=== PATIENT | male | born 1950 | race Caucasian/White ===

== ENCOUNTER 2017-09-19 14:40 | Emergency (ER) | payer MEDICARE, OTHER ==
[2017-09-19] MEDS ORDERED: NORMAL SALINE 1000 ML 1,000 ML IV ONE (15:51)
[2017-09-19] MEDS ORDERED: KETOROLAC TROMETHAMINE INJ/PF 30 MG/1 ML SDV IV PRN (15:51)
--- NOTE | 2017-09-19 15:52 | ER Document Report ---
ED Medical Screen (RME) - General Chief Complaint: Breathing Difficulty Stated Complaint: LEFT SIDE PAIN,CONFUSION Time Seen by Provider: 09/19/17 15:50 Notes: Patient comes in complaining of left-sided chest pain. Family states that over the last several days patient has been very lethargic and lying in bed all day. Patient will not eat or drink very much. Patient has been confused as well. Patient recently had a CT scan that showed pneumonia. However when patient was referred to pulmonology the drum carrier stated that he believes it may be cancer and not pneumonia. A repeat CT scan was scheduled for tomorrow. TRAVEL OUTSIDE OF THE [place] IN LAST 30 DAYS: No - Related Data Allergies/Adverse Reactions: No Known Allergies Allergy (Unverified 09/19/17 14:46) Past Medical History Pulmonary Medical History: Reports: Hx COPD Renal/ Medical History: Denies: Hx Peritoneal Dialysis Physical Exam - Vital signs Vitals: Temp Pulse Resp BP Pulse Ox 98.8 F 106 H 18 131/74 H 97 09/19/17 14:48 09/19/17 14:48 09/19/17 14:48 09/19/17 14:48 09/19/17 14:48 Course - Vital Signs Vital signs: Temp Pulse Resp BP Pulse Ox 98.8 F 106 H 18 131/74 H 97 09/19/17 14:48 09/19/17 14:48 09/19/17 14:48 09/19/17 14:48 09/19/17 14:48
[2017-09-19 16:26] LABS: APPEARANCE,URINE SLIGHTLY-CLOUDY; BILIRUBIN,URINE NEGATIVE (NEGATIVE); COLOR,URINE YELLOW; GLUCOSE, URINE 50 mg/dL (NEGATIVE); KETONES,URINE NEGATIVE (NEGATIVE); LEUKOCYTE ESTERASE,URINE NEGATIVE (NEGATIVE); NITRITE,URINE NEGATIVE (NEGATIVE); PROTEIN,URINE 100 mg/dL (NEGATIVE); URINE SPECIFIC GRAVITY 1.023; UROBILINOGEN,URINE NEGATIVE mg/dL (<2.0)
[2017-09-19 16:49] LABS: HEMATOCRIT 40.4 % (37.9-51.0); HEMOGLOBIN 13.5 g/dL (13.5-17.0); MEAN CORPUSCULAR HEMOGLOBIN 27.7 pg (27.0-33.4); MEAN CORPUSCULAR HGB CONC 33.4 g/dL (32.0-36.0); MEAN CORPUSCULAR VOLUME 83 fl (80-97); PLATELET COUNT 130 10^3/uL (150-450); RED BLOOD COUNT 4.87 10^6/uL (4.35-5.55); RED CELL DISTRIBUTION WIDTH 13.5 % (11.5-14.0); WHITE BLOOD COUNT 20.2 10^3/uL (4.0-10.5)
--- NOTE | 2017-09-19 16:49 | RADIOLOGY REPORT (SQ) ---
EXAM DESCRIPTION: CHEST PA/LAT COMPLETED DATE/TIME: 09/19/2017 4:37 pm REASON FOR STUDY: left sided pain COMPARISON: None. EXAM PARAMETERS: NUMBER OF VIEWS: two views TECHNIQUE: Digital Frontal and Lateral radiographic views of the chest acquired. RADIATION DOSE: NA LIMITATIONS: none FINDINGS: LUNGS AND PLEURA: There is evidence for obstructive lung disease with chronic appearing ch anges. Consolidative process is identified in the left lower hemithorax which may represent a left p leural effusion with associated atelectasis or infiltrate. I would recommend followup films to compl ete clearing to exclude an underlying process. Remaining lung saeed are free of active infiltrates. No pneumothorax is seen. MEDIASTINUM AND HILAR STRUCTURES: No masses or contour abnormalities. HEART AND VASCULAR STRUCTURES: Heart normal size. No evidence for failure. BONES: No acute findings. HARDWARE: None in the chest. OTHER: I cannot exclude a focal eventration or herniation of the left hemidiaphragm posteriorly. IMPRESSION: Obstructive lung disease with chronic appearing changes. Consolidative process in the l eft lower hemithorax as noted above. Clinical correlation and followup is recommended. Other findin gs as noted above TECHNICAL DOCUMENTATION: JOB ID: [id number] [employer]- All Rights Reserved
--- NOTE | 2017-09-19 16:49 | ER Document Report ---
ED Respiratory Problem - General Chief Complaint: Breathing Difficulty Stated Complaint: LEFT SIDE PAIN,CONFUSION Time Seen by Provider: 09/19/17 15:50 Notes: The patient is a 67-year-old male, past medical history COPD, current smoker, presents with increasing cough with streaks of blood over the past 3 months. Over the past 2 days, he began to have pain in the left side of his chest that is worse when he takes deep breath. He is also having some trouble and has not had much of an appetite during the same time period. Patient had an abnormal chest x-ray several months ago and is scheduled for an outpatient CT tomorrow with follow-up at his peanut butter maker, Dr. Gonsalez, in 3 days. Patient denies nausea, vomiting, abdominal pain, fevers, back pain, lightheadedness, leg swelling, blood thinner use or rash. TRAVEL OUTSIDE OF THE [place] IN LAST 30 DAYS: No - Related Data Allergies/Adverse Reactions: No Known Allergies Allergy (Unverified 09/19/17 14:46) Past Medical History - General Information source: Patient - Social History Smoking Status: Current Every Day Smoker Family History: Reviewed & Not Pertinent Patient has suicidal ideation: No Patient has homicidal ideation: No Pulmonary Medical History: Reports: Hx COPD Renal/ Medical History: Denies: Hx Peritoneal Dialysis Review of Systems - Review of Systems Notes: REVIEW OF SYSTEMS: CONSTITUTIONAL: -fevers, -chills EENT: -eye pain, -difficulty swallowing, -nasal congestion CARDIOVASCULAR: +chest pain, -syncope. RESPIRATORY: +cough, +SOB GASTROINTESTINAL: -abdominal pain, -nausea, -vomiting, -diarrhea GENITOURINARY: -dysuria, -hematuria MUSCULOSKELETAL: -back pain, -neck pain SKIN: -rash or skin lesions. HEMATOLOGIC: -easy bruising or bleeding. LYMPHATIC: -swollen, enlarged glands. NEUROLOGICAL: -altered mental status or loss of consciousness, -headache, - neurologic symptoms PSYCHIATRIC: -anxiety, -depression. ALL OTHER SYSTEMS REVIEWED AND NEGATIVE. Physical Exam - Vital signs Vitals: Temp Pulse Resp BP Pulse Ox 98.8 F 106 H 18 131/74 H 97 09/19/17 14:48 09/19/17 14:48 09/19/17 14:48 09/19/17 14:48 09/19/17 14:48 - Notes Notes: PHYSICAL EXAMINATION: GENERAL: Well-appearing, well-nourished and in no acute distress. HEAD: Atraumatic, normocephalic. EYES: Pupils equal round and reactive to light, extraocular movements intact, sclera anicteric, conjunctiva are normal. ENT: nares patent, oropharynx clear without exudates. Moist mucous membranes. NECK: Normal range of motion, supple without lymphadenopathy LUNGS: LLL crackles. No respiratory distress. HEART: Tachycardia, regular rhythm. ABDOMEN: Soft, nontender, normoactive bowel sounds. No guarding, no rebound. No masses appreciated. EXTREMITIES: Normal range of motion, no pitting or edema. No cyanosis. NEUROLOGICAL: Cranial nerves grossly intact. Normal speech, normal gait. Normal sensory and motor exams. PSYCH: Normal mood, normal affect. SKIN: Warm, Dry, normal turgor, no rashes or lesions noted. Course - Re-evaluation Re-evalutation: Patient is in no respiratory distress and chest pain has resolved. With the cough, history of heavy smoking and now streaks of blood in his sputum, concern for PE or lung mass. There is evidence of a pneumonia in his left lower lobe, but no PE. He also is tachycardic and has a leukocytosis. No recent hospitalizations, so we will begin CAP antibiotics. Troponin and EKG initially not ordered from triage, but troponin is elevated at 3.1 with hyperacute T waves in the lateral leads, but no evidence of a STEMI. No old EKGs to compare this to. Heparin and ASA started. Patient requires transfer to facility with interventional cardiology for further evaluation and treatment. 09/19/17 20:10 Called over to [employer]. Awaiting callback from [facility]. 09/19/17 20:[address] Edwin Grubbs ([facility]) and he has accepted patient. Recommends holding the Plavix due to recent blood in his sputum and continuing the heparin drip and aspirin. Awaiting a bed assignment. Pt remains chest pain free. - Vital Signs Vital signs: Temp Pulse Resp BP Pulse Ox 98.8 F 106 H 18 131/74 H 97 09/19/17 14:48 09/19/17 14:48 09/19/17 14:48 09/19/17 14:48 09/19/17 14:48 - Laboratory Result Diagrams: 09/19/17 16:15 09/19/17 16:15 Laboratory results interpreted by me: 09/19/17 09/19/17 09/19/17 15:55 16:15 16:15 WBC 20.2 H Plt Count 130 L Seg Neuts % (Manual) 81 H Lymphocytes % (Manual) 10 L Abs Neuts (Manual) 17.0 H PT APTT VBG pH Sodium 131.9 L Chloride 95 L BUN 25 H Direct Bilirubin 0.5 H AST 82 H ALT 121 H Urine Protein 100 H Urine Glucose (UA) 50 H Urine Blood LARGE H 09/19/17 09/19/17 16:15 20:15 WBC Plt Count Seg Neuts % (Manual) Lymphocytes % (Manual) Abs Neuts (Manual) PT 15.8 H APTT 40.7 H VBG pH 7.44 H Sodium Chloride BUN Direct Bilirubin AST ALT Urine Protein Urine Glucose (UA) Urine Blood - Diagnostic Test Radiology reviewed: Image reviewed, Reports reviewed Radiology results interpreted by me: CXR: Obstructive lung disease with chronic appearing changes. Consolidative process in the left lower hemithorax as noted above. Clinical correlation and followup is recommended. Other findings as noted above. CTA Chest: No PE. LLL pneumonia. Mild lymphadenopathy. - EKG Interpretation by Me EKG shows normal: Sinus rhythm Rate: Normal Rhythm: NSR When compared to previous EKG there are: Previous EKG unavailable Additional EKG results interpreted by me: No STEMI. Hyperacute T-waves. Critical Care Note - Critical Care Note Total time excluding time spent on procedures (mins): 35 Discharge - Discharge Clinical Impression: NSTEMI (non-ST elevated myocardial infarction) Pneumonia Qualifiers: Pneumonia type: due to unspecified organism Laterality: left Lung location: lower lobe of lung Qualified Code(s): J18.1 - Lobar pneumonia, unspecified organism Condition: Stable Disposition: [facility] Referrals: ROMEO GRAYSON DO [Primary Care Provider] - Follow up as needed EVON GONSALEZ MD [ACTIVE STAFF] - Follow up as needed
[2017-09-19 17:02] LABS: ALANINE AMINOTRANSFERASE 121 U/L (21-72); ALBUMIN 3.8 g/dL (3.5-5.0); ALKALINE PHOSPHATASE 115 U/L (38-126); ANION GAP 11 (5-19); ASPARTATE AMINO TRANSFERASE 82 U/L (17-59); BILIRUBIN,DIRECT 0.5 mg/dL (0.0-0.4); BLOOD UREA NITROGEN 25 mg/dL (7-20); CALCIUM 9.3 mg/dL (8.4-10.2); CARBON DIOXIDE 26 mmol/L (22-30); CHLORIDE 95 mmol/L (98-107); GLUCOSE 93 mg/dL (75-110); POTASSIUM 4.6 mmol/L (3.6-5.0); SODIUM 131.9 mmol/L (137-145); TOTAL PROTEIN 7.1 g/dL (6.3-8.2)
[2017-09-19 17:04] LABS: BAND NEUTROPHILS % (MANUAL) 3 % (3-5); BASOPHILS % (MANUAL) 0 % (0-2); EOSINOPHILS % (MANUAL) 1 % (0-6); LYMPHOCYTES % (MANUAL) 10 % (13-45); MONOCYTES % (MANUAL) 5 % (3-13); SEGMENTED NEUTROPHILS % (MAN) 81 % (42-78); TOTAL CELLS COUNTED 100
[2017-09-19 17:05] LABS: PLATELET COMMENT ADEQUATE; RBC MORPHOLOGY COMMENT NORMO-CYTIC/CHROMIC
--- NOTE | 2017-09-19 19:41 | RADIOLOGY REPORT (SQ) ---
EXAM DESCRIPTION: CTA CHEST COMPLETED DATE/TIME: 09/19/2017 7:25 pm REASON FOR STUDY: hemoptysis, tachycardia, possible lung mass COMPARISON: None. TECHNIQUE: CT scan of the chest performed using helical scanning technique with dynamic intravenous contrast injection. Images reviewed with lung, soft tissue and bone windows. Reconstructed coronal and sagittal MPR images reviewed. Additional 3 dimensional post-processing performed to develop Maximal Intensity Projection images (VT P). All images stored on PACS. All CT scanners at this facility use dose modulation, iterative reconstruction, and/or weight based d osing when appropriate to reduce radiation dose to as low as reasonably achievable (ALARA). [facility]: Dose Right [facility]: CareDose [facility]: Dose Right [facility]: Teradose 4D [facility]: Lab21 CONTRAST TYPE AND DOSE: contrast/concentration: Isovue 370.00 mg/ml; Total Contrast Delivered: 60.0 ml; Total Saline Delivered: 60.0 ml Contrast bolus adequate for pulmonary arteries and aorta. RENAL FUNCTION: BUN 25 creatinine 1.1 RADIATION DOSE: CT Rad equipment meets quality standard of care and radiation dose reduction techniq ues were employed. CTDIvol: 5.0 - 7.5 mGy. DLP: 227 mGy-cm. . LIMITATIONS: None. FINDINGS: LUNGS AND PLEURA: Centrilobular and paraseptal emphysema. Segmental airspace disease with air bronchograms in the left lower lobe. No large effusions. AORTA AND GREAT VESSELS: No aneurysm. Contrast bolus not optimized for the aorta. HEART: No pericardial effusion. No significant coronary artery calcifications. PULMONARY ARTERIES: No emboli visualized in the main pulmonary arteries or the segmental branches. HILAR AND MEDIASTINAL STRUCTURES: 1.5 cm pretracheal node. 1.5 x 2 cm right hilar node. HARDWARE: None in the chest. UPPER ABDOMEN: No significant findings. Limited exam. THYROID AND OTHER SOFT TISSUES: No masses. No adenopathy. BONES: No acute or significant finding. 3D MIPS: Confirm above findings. OTHER: No other significant finding. IMPRESSION: 1. No PE. 2. Left lower lobe pneumonia. 3. Mild lymphadenopathy. COMMENT: Quality ID # [id number]: Final reports with documentation of one or more dose reduction techniques (e.g., Automated exposure control, adjustment of the mA and/or kV according to patient size, use of iterative reconstruction technique) TECHNICAL DOCUMENTATION: JOB ID: [id number] [facility] [employer]- All Rights Reserved
[2017-09-19] MEDS ORDERED: HEPARIN SOD (PORCINE) 1,000 UNIT/ML 10 ML VIAL IV ONE (19:57)
[2017-09-19] MEDS ORDERED: CEFTRIAXONE 1 GM/D5W RTU 1 GM/50 ML RTUPB IV ONE (19:58)
[2017-09-19] MEDS ORDERED: AZITHROMYCIN INJ 500 MG VIAL IV ONE (19:58)
[2017-09-19] MEDS ORDERED: ASPIRIN 81 MG TABLET, CHEWABLE PO ONE (20:06)
[2017-09-19 20:16] LABS: INTERNATIONAL RATION (INR) 1.18; PROTHROMBIN TIME 15.8 SEC (11.4-15.4)
[2017-09-19 20:17] LABS: PARTIAL THROMBOPLASTIN TIME 40.7 SEC (23.5-35.8)
[2017-09-19 20:31] LABS: VENOUS BLOOD HCO3 26.3 mmol/L (20-32); VENOUS BLOOD PCO2 39.8 mmHg (35-63); VENOUS BLOOD PH 7.44 (7.30-7.42)
[2017-09-19] MEDS ORDERED: HEPARIN SODIUM,PORCINE/D5W 25,000 UNIT/250 ML RTUINJ IV PRN (21:14)
[2017-09-19] MEDS ORDERED: HEPARIN SOD (PORCINE) 1,000 UNIT/ML 10 ML VIAL IV PRN (22:57)
[2017-09-20] MEDS ORDERED: HEPARIN SOD (PORCINE) 1,000 UNIT/ML 10 ML VIAL IV PRN (00:15)
[2017-09-20 00:40] LABS: A TYPE INFLUENZA AG NEGATIVE (NEGATIVE); B INFLUENZA AG NEGATIVE (NEGATIVE)
--- NOTE | 2017-09-20 06:36 | EKG REPORT ---
SEVERITY:- ABNORMAL ECG - SINUS RHYTHM PROBABLE LEFT ATRIAL ABNORMALITY RBBB AND LPFB CONSIDER OLD ANTEROSEPTAL IA. : Confirmed by: Cr Taylor MD 20-Sep-2017 06:35:34
[2017-09-20] MEDS ORDERED: FENTANYL CITRATE INJ/PF 100 MCG/2 ML AMPUL IV ONE ×2 (07:58→13:04)
[2017-09-20] MEDS ORDERED: CEFTRIAXONE 1 GM/D5W RTU 1 GM/50 ML RTUPB IV SCH (10:00)
--- NOTE | 2017-09-20 14:25 | ER Document Report ---
Doctor's Note Notes: 09/20/17 14:24 Patient has been evaluated prior to transfer. Patient has had a little bit of hemoptysis but nothing that is massive hemoptysis. Troponin is coming down. Patient is stable at this time to be transferred.
[2017-09-20 14:29] VITALS: BP 115/76
== END 2017-09-20 14:59 | disposition short-term general hospital (02) ==
LOC: ER 14:40
DX: I21.4 Non-ST elevation (NSTEMI) myocardial infarction (principal); J18.1 Lobar pneumonia, unspecified organism; F17.200 Nicotine dependence, unspecified, uncomplicated; J44.9 Chronic obstructive pulmonary disease, unspecified
CPT/HCPCS: 93005; 96376; 99291; 96361; 96375; 96365; 96367; 36415; 87040; 85025; 85610; 85730; 80053; 81001; 84484; 82803; 83605; 87804; 71046; 71275; 93010; J1644 ×3; A9270; J3010; J1885; J7030; J0456; J0696 ×2